=== PATIENT | male | born 1945 | race Caucasian/White ===

== ENCOUNTER → 2016-07-08 | Outpatient (REF) | LOC: ZLAB.WCH 10:26 | DX: Z01.89 Encounter for other specified special examinations (principal) ==

== ENCOUNTER → 2017-10-30 | Outpatient (REF) | LOC: ZLAB.WCH 08:35 | DX: Z01.89 Encounter for other specified special examinations (principal) | CPT/HCPCS: G0103 ==

== ENCOUNTER 2019-05-07 20:50 | Inpatient (IN) | payer MEDICARE ==
[~2019-05-07] VITALS: Ht 170.2 cm; Wt 115.9 kg
--- NOTE | 2019-05-07 21:45 | NUR ---
Admission assessment complete. Patient in bed, family at bedside. Patient denies pain. SOB noted, on 4L oxygen. RT at bedside. Jane, B[employer] TESTER aware of patient's arrival. Denies further needs at this time. Will wait for orders.
[2019-05-07] MEDS ORDERED: PREDNISONE20 MG (22:37)
[2019-05-07] MEDS ORDERED: LASIX 20MG TABL20 MG PO (22:40)
[2019-05-07] MEDS ORDERED: HYZAAR 25 MG-101 TAB PO (22:41)
[2019-05-07] MEDS ORDERED: NORCO 325 MG-51 TAB (22:41)
[2019-05-07] MEDS ORDERED: GLUCOPHAGE500 MG/TAB PO ×2 (22:43→22:44)
[2019-05-07] MEDS ORDERED: ZOCOR 40MG40 MG PO (22:45)
[2019-05-07] MEDS ORDERED: COUMADIN 5MG5 MG/TAB PO (22:47)
[2019-05-07] MEDS ORDERED: COUMADIN 77.5 MG/TAB PO (22:48)
[2019-05-07 23:01] VITALS: BP 124/67; PULSE 86
[2019-05-07 23:10] VITALS: BP 124/67; PULSE 89; TEMP 97.5
[2019-05-08 00:58] LABS: ARTERIAL BLD GAS O2 SATURATION 94.3 % (92-100); ARTERIAL BLOOD GAS BASE EXCESS -1.6 (-2-2); ARTERIAL BLOOD GAS HCO3 21.2 meq/L (22-26); ARTERIAL BLOOD GAS PCO2 28.2 mmHg (35-45); ARTERIAL BLOOD GAS pH 7.49 (7.35-7.45)
[2019-05-08 01:17] LABS: C-REACTIVE PROTEIN 15.1 mg/dL (0.0-0.9)
[2019-05-08 04:12] VITALS: BP 116/62; PULSE 83; TEMP 98.1
--- NOTE | 2019-05-08 04:53 | NUR ---
Patient in bed, resting. IV in right AC flushed with NS, patent. Denies pain. VS stable. Denies further needs at this time. Will continue to monitor.
[2019-05-08 08:00] VITALS: BP 129/72; PULSE 85; TEMP 98.1
--- NOTE | 2019-05-08 08:15 | NUR ---
Patient taken by wheelchair for CT scan.
[2019-05-08 08:17] LABS: MEAN CELL VOLUME 91 fl (80.0-100.0); MEAN CORPUSCULAR HGB CONC 32 g/dl (33.0-37.0); MEAN PLATELET VOLUME 9.5 fl (7.4-10.4); PLATELET COUNT 341 K/mm3 (130-400); RED BLOOD COUNT 2.55 M/mm3 (4.20-5.60); REDCELL DISTRIBUTION WIDTH-CV 14.5 % (11.5-14.5)
[2019-05-08 08:24] LABS: INR 2.5 (0.8-3.0); PROTHROMBIN TIME 30.5 SECONDS (9.7-12.8)
--- NOTE | 2019-05-08 08:24 | NUR ---
Patient back to room from CT scan by wheelchair. Tolerated well. Call light within reach
--- NOTE | 2019-05-08 08:30 | NUR ---
Patient resting in bed, at the bedside. A&Ox4, denies pain and discomfort. VSS 4L NC O2. Telemetry on chest.IV CDI. Patient NPO pending cardiology consult. No further needs expressed from patient. Call light within reach
[2019-05-08 08:36] LABS: CALCIUM 8.5 mg/dL (8.4-10.2); CREATININE, serum 3.14 (0.66-1.25); POTASSIUM 4.4 mmol/L (3.4-5.0)
--- NOTE | 2019-05-08 08:51 | NUR ---
Vancomycin Initial Dosing Pharmacy Note Ordering provider: Sigrid Corona MD Indication/duration: pneumonia, 7 days LABS: SCr 3.14, CrCl~24, GFR 20 Recommendation: Will continue Vancomycin 1.5 gm IV q24h. Pharmacy will closely montior renal function and check a Vancomycin trough prior to 3rd dose on 05/10/19. Loading dose: 2 grams Maintenance dose: 1.5 grams every 24 hours Trough goal: 15-20 ug/mL
[2019-05-08 08:53] LABS: HEMATOCRIT 23.1 % (42.0-52.0); HEMOGLOBIN 7.4 g/dl (13.5-18.0); MEAN CORPUSCULAR HEMOGLOBIN 29 pg (27.0-31.0)
--- NOTE | 2019-05-08 10:49 | NUR ---
Visited, listened, and provided spiritual care.
[2019-05-08 12:00] VITALS: BP 125/67; PULSE 82; TEMP 97.6
[2019-05-08 12:51] LABS: BAND 1 % (0-10); LYMPHOCYTE 6 % (20.0-51.0); NEUTROPHILS 92 % (42.0-75.2)
[2019-05-08 12:52] LABS: HYPOCHROMIA 2+; PLATELET ESTIMATE NORMAL (NORMAL)
--- NOTE | 2019-05-08 13:30 | NUR ---
Plan: is to return home. Assess: SW met with patient about dc, patient reports that he resides in [place] with his Maricel and DTR live close by Berkley Perez and Son João . Patient reports denies the use of any DME. Patient reports pcp as Osmar Ace. Patient reports that he does not have a DPOA but does have a living will. Family help transport. Action: No additonal needs identified. SW educated on addtional resources.
[2019-05-08 16:06] LABS: PH 5 (5-8); URINE APPEARANCE Cloudy; URINE BACTERIA None Seen /hpf; URINE BILIRUBIN Negative (NEGATIVE); URINE BLOOD 3+ (NEGATIVE); URINE COLOR Yellow; URINE GLUCOSE Negative (NEGATIVE); URINE KETONE Negative (NEGATIVE); URINE LEUKOCYTE ESTERASE Negative (NEGATIVE); URINE NITRATE Negative (NEGATIVE); URINE PROTEIN(semi-quant) 1+ (NEGATIVE); URINE RBC >50 /hpf; URINE UROBILINOGEN Negative (NEGATIVE)
[2019-05-08 16:08] LABS: SQUAMOUS EPITHELIAL None Seen /hpf
[2019-05-08 16:12] VITALS: BP 135/63; PULSE 95; TEMP 97.4
[2019-05-08 16:12] LABS: RHEUMATOID FACTOR-SCREEN <15 IU/mL (0-29)
[2019-05-08 16:12] LABS: COLLECTION METHOD CLEAN CATCH
--- NOTE | 2019-05-08 17:11 | NUR ---
EMS here to transfer patient to [facility]. Denies pain and discomfort. IV CDI, Zosyn infusing. Discharge packet with EMS. VSS 4L NC O@ no reported SOB. No further needs expressed from patient.
== END 2019-05-08 17:12 | disposition short-term general hospital (02) | DRG 189 ==
LOC: MEDICAL 20:50
PROVIDERS: Nurse Practitioner Family; ADMIT Student in an Organized Health Care Education/Training Program
DX: J96.01 Acute respiratory failure with hypoxia (principal); N17.9 Acute kidney failure, unspecified; R04.2 Hemoptysis; E78.5 Hyperlipidemia, unspecified; E66.9 Obesity, unspecified; I10 Essential (primary) hypertension; E11.9 Type 2 diabetes mellitus without complications; I35.0 Nonrheumatic aortic (valve) stenosis; Z77.22 Contact with and (suspected) exposure to environmental tobacco smoke (acute) (chronic); G47.30 Sleep apnea, unspecified; Z86.718 Personal history of other venous thrombosis and embolism; Z79.01 Long term (current) use of anticoagulants; Z79.52 Long term (current) use of systemic steroids; Z79.84 Long term (current) use of oral hypoglycemic drugs
CPT/HCPCS: 99223-AI; 99239; J1815; J1940; J2543; J3370; J7040; J7512

== ENCOUNTER → 2020-04-07 | Outpatient (CLI) | payer MEDICARE, BC ==
[~2020-04-07] MED LIST: COUMADIN 5MG5 MG/TAB PO; COUMADIN 77.5 MG/TAB PO; GLUCOPHAGE500 MG/TAB PO; HYZAAR 25 MG-101 TAB PO; LASIX 20MG TABL20 MG PO; NORCO 325 MG-51 TAB; PREDNISONE20 MG; ZOCOR 40MG40 MG PO
== END ==
LOC: COL.LAB 08:59
DX: Z20.828 Contact with and (suspected) exposure to other viral communicable diseases (principal)

== ENCOUNTER 2022-04-12 09:30 | Emergency (ER) | payer MEDICARE ==
[~2022-04-12] VITALS: Ht 170.2 cm; Wt 108.2 kg
[~2022-04-12 09:30] MED LIST changes: -CEPHALEXIN500 M1 PO; -VALTREX1 GM PO
[2022-04-12 09:37] VITALS: TEMP 99.6
[2022-04-12 10:22] LABS: BASO # 0.1 K/mm3 (0.0-0.2); BASO % 0.9 % (0.0-2.0); EOS # 0.1 K/mm3 (0.0-0.7); EOS % 2.4 % (0.0-4.0); GRAN # 3.9 K/mm3 (1.4-6.5); GRAN % 73.2 % (42.2-75.2); HEMATOCRIT 42.2 % (42.0-52.0); HEMOGLOBIN 14.2 g/dl (13.5-18.0); LYMPH # 0.6 K/mm3 (1.2-3.4); LYMPH % 10.3 % (20.0-51.0); MEAN CELL VOLUME 93 fl (80.0-100.0); MEAN CORPUSCULAR HEMOGLOBIN 31 pg (27-31); MEAN CORPUSCULAR HGB CONC 34 g/dl (33.0-37.0); MEAN PLATELET VOLUME 9.1 fl (7.4-10.4); MONO # 0.7 K/mm3 (0.1-0.6); MONO % 12.8 % (1.7-9.3); PLATELET COUNT 243 K/mm3 (130-400); RED BLOOD COUNT 4.52 M/mm3 (4.20-5.60); REDCELL DISTRIBUTION WIDTH-CV 13.2 % (11.5-14.5)
[2022-04-12] MEDS ORDERED: VALTREX1 GM PO (10:34)
[2022-04-12] MEDS ORDERED: CEPHALEXIN500 M1 PO (10:34)
[2022-04-12 10:41] LABS: ALBUMIN 4.3 gm/dL (3.4-4.8); BILIRUBIN,TOTAL 0.8 mg/dL (0.2-1.2); CALCIUM 10.4 mg/dL (8.4-10.2); CREATININE, serum 2.01 mg/dL (0.72-1.25); TOTAL PROTEIN 7.9 gm/dL (6.2-8.1)
[2022-04-12 11:35] VITALS: BP 112/73; PULSE 95
== END 2022-04-12 11:36 | disposition home or self-care (01) ==
LOC: COL.ER 09:30
PROVIDERS: Emergency Medicine
DX: B02.9 Zoster without complications (principal); R79.89 Other specified abnormal findings of blood chemistry

== ENCOUNTER → 2022-04-12 | Outpatient (CLI) | payer MEDICARE ==
[~2022-04-12] MED LIST changes: +ASPIRIN 81M81 MG/TA2 PO; +CEPHALEXIN500 M1 PO; +KLOR-CON 1010 MEQ PO; +VALTREX1 GM PO; +ZESTRIL 5MG5 MG PO
[2022-04-12 14:37] LABS: BASO # 0.1 K/mm3 (0.0-0.2); BASO % 1.2 % (0.0-2.0); EOS # 0.1 K/mm3 (0.0-0.7); EOS % 1.9 % (0.0-4.0); GRAN # 4.1 K/mm3 (1.4-6.5); GRAN % 70.1 % (42.2-75.2); HEMATOCRIT 41.7 % (42.0-52.0); LYMPH # 0.6 K/mm3 (1.2-3.4); LYMPH % 10.7 % (20.0-51.0); MEAN CELL VOLUME 93 fl (80.0-100.0); MEAN CORPUSCULAR HEMOGLOBIN 31 pg (27-31); MEAN CORPUSCULAR HGB CONC 34 g/dl (33.0-37.0); MEAN PLATELET VOLUME 9.6 fl (7.4-10.4); MONO # 0.9 K/mm3 (0.1-0.6); MONO % 15.8 % (1.7-9.3); PLATELET COUNT 232 K/mm3 (130-400); RED BLOOD COUNT 4.48 M/mm3 (4.20-5.60); REDCELL DISTRIBUTION WIDTH-CV 13.2 % (11.5-14.5)
[2022-04-12 14:48] LABS: ALBUMIN 4.4 gm/dL (3.4-4.8); BILIRUBIN,TOTAL 0.8 mg/dL (0.2-1.2); CALCIUM 10.4 mg/dL (8.4-10.2); CREATININE, serum 1.96 mg/dL (0.72-1.25); TOTAL PROTEIN 7.8 gm/dL (6.2-8.1)
[2022-04-12 14:55] LABS: MUCOUS Present (NOT PRESENT); SQUAMOUS EPITHELIAL None Seen /hpf (0-10); URINE BACTERIA None Seen /hpf (NONE SEEN); URINE WBC 0-2 /hpf (0-2)
[2022-04-12 14:56] LABS: PH 5.5 (5-8); URINE APPEARANCE Clear (CLEAR/HAZY); URINE BLOOD TRACE-INTACT (NEGATIVE); URINE COLOR Yellow (YELLOW); URINE GLUCOSE Negative (NEGATIVE); URINE KETONE Negative (NEGATIVE); URINE NITRATE Negative (NEGATIVE); URINE PROTEIN(semi-quant) Negative (NEGATIVE); URINE UROBILINOGEN 0.2 (NEGATIVE)
[2022-04-12 15:02] LABS: COLLECTION METHOD CLEAN CATCH
[2022-04-15 18:31] LABS: C-ANCA 36 U/mL (0-99)
== END ==
LOC: COL.LAB 13:02
DX: M31.31 Wegener's granulomatosis with renal involvement (principal)